=== PATIENT | male | born 1955 | race Native Hawaiian/Other Pacific Islander ===

== ENCOUNTER 2017-06-27 21:20 | Outpatient (CLI) | payer OTHER | END 2017-06-27 21:45 | disposition short-term general hospital (02) | LOC: AMB 21:20 | DX: R07.89 Other chest pain (principal) | CPT/HCPCS: A0425; A0427 ==

== ENCOUNTER 2017-06-27 21:50 | Emergency (ER) | payer OTHER ==
[~2017-06-27] VITALS: Ht 193 cm; Wt 108.9 kg
[2017-06-27 22:23] LABS: PLATELET COUNT 295 K/uL (142-355)
[2017-06-27 22:28] LABS: POTASSIUM 3.7 mmol/L (3.6-5.2); SODIUM 133 mmol/L (136-145)
[2017-06-27 23:31] LABS: PARTIAL THROMBOPLASTIN TIME 24.2 SECONDS (24.5-33.6)
[2017-06-28 03:51] VITALS: BP 155/89; TEMP 98.2
== END 2017-06-28 03:53 | disposition short-term general hospital (02) ==
LOC: ED 21:50
DX: I21.4 Non-ST elevation (NSTEMI) myocardial infarction (principal)
CPT/HCPCS: 36415; 80053; 81000; 82550; 82553; 84484; 85027; 85610; 85730; 93005; 96372; 96374; 96375; 96376; 99285; J1650; J2270; J2405

== ENCOUNTER 2017-06-28 03:57 | Outpatient (CLI) | payer OTHER | END 2017-06-28 05:17 | disposition short-term general hospital (02) | LOC: AMB 03:57 | DX: I21.4 Non-ST elevation (NSTEMI) myocardial infarction (principal) | CPT/HCPCS: A0425; A0429 ==